=== PATIENT | female | born 1990 | race Caucasian/White ===

== ENCOUNTER 2017-05-11 19:59 | Emergency (ER) | payer OTHER ==
[~2017-05-11] VITALS: Ht 170.2 cm; Wt 70.8 kg
[2017-05-11 20:10] VITALS: BP 130/95
--- NOTE | 2017-05-11 21:29 | NUR ---
BIOMEDICAL ELECTRONICS TECHNICIAN DEGRASSE AT BEDSIDE FOR EVAL.
== END 2017-05-11 21:57 | disposition home or self-care (01) ==
LOC: ER 20:06
DX: J06.9 Acute upper respiratory infection, unspecified (principal)
CPT/HCPCS: A4606; Z7610